=== PATIENT | female | born 1995 | race Caucasian/White ===

== ENCOUNTER 2018-02-16 08:15 | Emergency (ER) | payer SELFPAY ==
--- NOTE | 2018-02-16 09:04 | EKG ---
Test Date: 2018-02-16 Test Time: 08:52:39 Hospital Administrator: ANDREIA MEASUREMENT RESULTS: Intervals: Rate: 68 IN: 142 QRSD: 90 QT: 406 QTc: 431 [facility]: P: 42 IN: 142 QRS: 23 T: 21 INTERPRETIVE STATEMENTS: Normal sinus rhythm with sinus arrhythmia Normal ECG No previous ECG available for comparison Electronically Signed On 02-16-18 09:03:37 CDT by Sha Crooks
--- NOTE | 2018-02-16 09:16 | RAD REPORT ---
EXAM DESCRIPTION: RAD - Chest Single View - 02/16/2018 9:09 am CLINICAL HISTORY: Chest pain. COMPARISON: None. FINDINGS: Portable technique limits examination quality. The lungs are grossly clear. The heart is normal in size. No displaced fractures. IMPRESSION: No acute intrathoracic process suspected.
[2018-02-16 09:56] LABS: Absolute Lymphocytes (CBC) 2.3 K/uL (0.7-4.9); Absolute Monocytes 0.7 K/uL (0.1-1.3); Absolute Neutrophil 3.3 K/uL (1.8-8.0); Basophils % 0.8 % (0-1.3); Eosinophils % 1.8 % (0-4.4); Lymphocytes % 35.5 % (15.3-44.8); MCH 27.7 pg (27.0-35.0); MCV 83.6 fL (80-100); MPV 8.3 fL (7.6-11.3); Monocytes % 10.8 % (3.3-12.3); RBC Red Blood Cell Count 4.67 M/uL (3.86-4.86)
[2018-02-16 09:58] LABS: Bicarbonate 29 mEq/L (21-31); Glucose Level 91 mg/dL (65-120); Potassium 3.8 mEq/L (3.6-5.0); Sodium Level 137 mEq/L (135-145)
[2018-02-16 09:59] LABS: BUN Blood Urea Nitrogen 8 mg/dL (6-20); Magnesium 1.8 mg/dL (1.8-2.5)
--- NOTE | 2018-02-16 11:03 | EDPHYS ---
Physician Documentation [facility] Name: Mery Aguayo Age: 22 yrs Sex: Female : 1995 Arrival Date: 02/16/2018 Time: 08:15 Bed 16 Private MD: ED Physician Bismark Rodgers HPI: 02/16 08:32 This 22 yrs old Female presents to ER via Ambulatory with complaints of Chest ps1 Pain. 08:32 The patient or guardian reports chest pain that is located primarily in the substernal ps1 area. The pain does not radiate. Associated signs and symptoms: Pertinent positives: shortness of breath. The chest pain is described as a pressure, squeezing. Duration: The patient or guardian reports a single episode, that is still ongoing, and unchanged. Severity of pain: At its worst the pain was moderate. No recent travel , fever, cough, calf tenderness, recent surgery. Is overweight, has not seen a doctor in 3 years and hypertensive on exam. 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 . 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 - Social history:: Smoking status: Patient/guardian denies using tobacco. ROS: 08:32 Constitutional: Negative for fever, chills, and weight loss, Eyes: Negative for injury, ps1 pain, redness, and discharge, Neck: Negative for injury, pain, and swelling. 08:32 Abdomen/GI: Negative for abdominal pain, nausea, vomiting, diarrhea, and constipation, Back: Negative for injury and pain, MS/Extremity: Negative for injury and deformity, Skin: Negative for injury, rash, and discoloration, Neuro: Negative for headache, weakness, numbness, tingling, and seizure. 08:32 Cardiovascular: Positive for chest pain. 08:32 Respiratory: Positive for shortness of breath. Exam: 08:32 Constitutional: This is a well developed, well nourished patient who is awake, alert, ps1 and in no acute distress. Head/Face: Normocephalic, atraumatic. Eyes: Pupils equal round and reactive to light, extra-ocular motions intact. Lids and lashes normal. Conjunctiva and sclera are non-icteric and not injected. Chest/axilla: Normal chest wall appearance and motion. Nontender with no deformity. No lesions are appreciated. Cardiovascular: Regular rate and rhythm. No gallops, murmurs, or rubs. Normal PMI, no JVD. No pulse deficits. Respiratory: Lungs have equal breath sounds bilaterally, clear to auscultation and percussion. No rales, rhonchi or wheezes noted. No increased work of breathing, no retractions or nasal flaring. Abdomen/GI: Soft, non-tender, with normal bowel sounds. No distension or tympany. No guarding or rebound. No evidence of tenderness throughout. Skin: Warm, dry with normal turgor. Normal color with no rashes, no lesions, and no evidence of cellulitis. MS/ Extremity: Pulses equal, no cyanosis. Neurovascular intact. Full, normal range of motion. Neuro: Awake and alert, GCS 15, oriented to person, place, time, and situation. Cranial nerves II-XII grossly intact. Sensory grossly intact. 08:32 Constitutional: The patient appears obese. Vital Signs: 08:32 BP 148 / 75; Pulse 79; Resp 15; Temp 97.2(TE); Pulse Ox 100% on R/A; Weight 127.01 kg lk1 (R); Height 5 ft. 3 in. (160.02 cm) (R); Pain 6/10; 09:45 BP 127 / 73; Pulse 70; Resp 18; Pulse Ox 100% on R/A; ph 11:44 BP 117 / 65; Pulse 74; Resp 16; Pulse Ox 98% on R/A; Pain 0/10; iw 08:32 Body Mass Index 49.60 (127.01 kg, 160.02 cm) lk1 MDM: 08:36 Patient medically screened. ps1 11:03 HEART Score: History: Slightly Suspicious (0), ECG: Normal (0), Age: < or = 45 years ps1 (0), Risk Factors: 1 or 2 risk factors (1), Troponin: < or = 1 x Normal Limit (0), Total Score =. Data reviewed: vital signs, nurses notes, lab test result(s), EKG, radiologic studies, CT scan. Medication response: Toradol markedly relieved the patient's pain. Special discussion: Based on the patient's history, exam, and Dx evaluation, there is no indication for emergent intervention or inpatient Tx. It is understood by the patient/guardian that if the Sx's persist or worsen they need to return immediately for re-evaluation. 02/16 08:36 Order name: Basic Metabolic Panel; Complete Time: 10:06 ps1 02/16 08:36 Order name: CBC with Diff; Complete Time: 11:00 ps1 02/16 08:36 Order name: Magnesium; Complete Time: 10:06 ps1 02/16 08:36 Order name: Troponin (emerg Dept Use Only); Complete Time: 10:07 ps1 02/16 08:36 Order name: D-Dimer; Complete Time: 10:12 ps1 02/16 08:36 Order name: XRAY Chest (1 view); Complete Time: 09:19 ps1 02/16 08:36 Order name: EKG; Complete Time: 08:36 ps1 02/16 08:36 Order name: Cardiac monitoring; Complete Time: 09:41 ps1 02/16 08:36 Order name: EKG - Nurse/Tech; Complete Time: 09:41 ps1 02/16 08:36 Order name: IV Saline Lock; Complete Time: 09:41 ps1 02/16 08:36 Order name: Labs collected and sent; Complete Time: 09:42 ps1 02/16 08:36 Order name: O2 Per Protocol; Complete Time: 09:42 ps1 02/16 09:35 Order name: Test, Serum; Complete Time: 11:00 jw5 02/16 08:36 Order name: O2 Sat Monitoring; Complete Time: 09:42 ps1 02/16 08:36 Order name: Urine Dipstick-Ancillary (obtain specimen); Complete Time: 09:42 ps1 Administered Medications: No medications were administered Disposition: 02/16/18 11:02 Discharged to Home. Impression: Other chest pain. - Condition is Stable. - Discharge Instructions: Nonspecific Chest Pain. - Prescriptions for Anaprox DS 550 mg Oral Tablet - take 1 tablet by ORAL route every 12 hours As needed; 20 tablet. - Work release form, Medication Reconciliation Form, Thank You Letter, Antibiotic Education, Prescription Opioid Use form. - Follow up: Private Physician; When: As needed; Reason: Recheck today's complaints, Continuance of care, Re-evaluation by your physician. Follow up: Emergency Department; When: As needed; Reason: If symptoms return, Trouble breathing, Worsening of condition. - Problem is new. - Symptoms have improved. Signatures: Dispatcher [employer] Michelle Ashton, RN ROBE iw Monica Guillen RN RN lk1 Bismark Rodgers MD MD ps1 Corrections: (The following items were deleted from the chart) 09:45 08:36 BNP+C.LAB.BRZ ordered. RHETT DELANEY
--- NOTE | 2018-02-16 11:46 | ER ---
Nurse's Notes [facility] Name: Mery Aguayo Age: 22 yrs Sex: Female : 1995 Arrival Date: 02/16/2018 Time: 08:15 Bed 16 Private MD: Diagnosis: Other chest pain Presentation: 02/16 08:31 Presenting complaint: Patient states: "I have had heavy pains in my chest since I woke lk1 up this morning.". Transition of care: patient was not received from another setting of care. Onset of symptoms was February 16, 2018 at 05:30. Care prior to arrival: None. 08:31 Method Of Arrival: Ambulatory lk1 08:31 Acuity: MUKUL 3 lk1 Triage Assessment: 08:32 General: Appears in no apparent distress. Behavior is calm, cooperative, appropriate lk1 for age. Pain: Complains of pain in mid-sternal area Pain currently is 6 out of 10 on a pain scale. Cardiovascular: Capillary refill is brisk Patient's skin is warm and dry. 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 - Social history:: Smoking status: Patient/guardian denies using tobacco. Screenin:59 Abuse screen: Denies threats or abuse. Denies injuries from another. Nutritional aj screening: No deficits noted. Tuberculosis screening: No symptoms or risk factors identified. Fall Risk None identified. Assessment: 08:59 General: Appears in no apparent distress. comfortable, obese, Behavior is calm, aj cooperative, appropriate for age. Pain: Complains of pain in chest Pain does not radiate. Neuro: Level of Consciousness is awake, alert, obeys commands, Oriented to person, place, time, situation. Cardiovascular: Reports chest pain. Respiratory: Airway is patent Respiratory effort is even, unlabored, Respiratory pattern is regular, symmetrical. Derm: Skin is intact, is healthy with good turgor, Skin is pink, warm \\T\\ dry. normal. 09:46 Reassessment: Patient appears in no apparent distress at this time. Patient and/or ph family updated on plan of care and expected duration. Pain level reassessed. Patient is alert, oriented x 3, equal unlabored respirations, skin warm/dry/pink. Pt resting quietly, awaiting lab and radiology results, friend at bedside. 11:43 Reassessment: Patient appears in no apparent distress at this time. Patient and/or iw family updated on plan of care and expected duration. Pain level reassessed. Patient is alert, oriented x 3, equal unlabored respirations, skin warm/dry/pink. Pain: Denies pain. Pain began. Vital Signs: 08:32 BP 148 / 75; Pulse 79; Resp 15; Temp 97.2(TE); Pulse Ox 100% on R/A; Weight 127.01 kg lk1 (R); Height 5 ft. 3 in. (160.02 cm) (R); Pain 6/10; 09:45 BP 127 / 73; Pulse 70; Resp 18; Pulse Ox 100% on R/A; ph 11:44 BP 117 / 65; Pulse 74; Resp 16; Pulse Ox 98% on R/A; Pain 0/10; iw 08:32 Body Mass Index 49.60 (127.01 kg, 160.02 cm) lk1 ED Course: 08:15 Patient arrived in ED. as 08:27 Bismark Rodgers MD is Attending Physician. ps1 08:31 Triage completed. lk1 08:33 Arm band placed on right wrist. lk1 08:49 Rachel Bragg, RN is Primary Nurse. aj 08:59 Patient has correct armband on for positive identification. Pulse ox on. aj 08:59 Patient maintains SpO2 saturation greater than 95% on room air. aj 09:02 X-ray completed. Portable x-ray completed in exam room. Patient tolerated procedure ag1 well. 09:06 XRAY Chest (1 view) In Process Unspecified. EDMS 09:44 Inserted saline lock: 22 gauge in right antecubital area, using aseptic technique. ph Blood collected. 09:45 EKG done, by die maintenance technician. reviewed by Bismark Rodgers MD. tc 11:43 No provider procedures requiring assistance completed. IV discontinued, intact, iw bleeding controlled, No redness/swelling at site. Pressure dressing applied. Administered Medications: No medications were administered Outcome: 11:02 Discharge ordered by . ps1 11:43 Discharged to home ambulatory, with family. iw 11:43 Condition: good 11:43 Discharge instructions given to patient, family, Instructed on discharge instructions, follow up and referral plans. medication usage, Demonstrated understanding of instructions, follow-up care, medications, Prescriptions given X 1. 11:46 Patient left the ED. iw Signatures: Dispatcher [employer] EDMS Rachel Bragg, ROBE RN Eliza Oro Irene, RN RN Keyonna Liu, parts product analyst EKG [facility] Kim Ba RN RN Renea Kramer ag1 Monica Guillen RN RN lk1 Bismark Rodgers MD MD ps1
[2018-02-16 11:58] VITALS: TEMP 97.2
[2018-02-16 12:04] VITALS: BP 117/65; O2SAT 98
== END 2018-02-16 11:46 | disposition home or self-care (01) ==
LOC: ER 08:15
DX: R07.89 Other chest pain (principal)
CPT/HCPCS: 36415; 71045; 80048; 83735; 84484; 84703; 85025; 85379; 93005; 99284

== ENCOUNTER 2018-11-03 10:21 | Emergency (ER) | payer OTHER ==
--- OUTSIDE RECORDS SUMMARY | 2018-11-03 10:23 | XMS REPORT ---
:1995 Author Organization [facility] Address [address] [place] [address] Dr. Sousa [address] [place] [id number] Care Team Providers Name Role Phone Unavailable Unavailable Unavailable Problems This patient has no known problems. Allergies, Adverse Reactions, Alerts This patient has no known allergies or adverse reactions. Medications This patient has no known medications.
[2018-11-03] MEDS ORDERED: ALBUTEROL 2.5 MG/3 ML NEB SOL ONE (10:58)
--- NOTE | 2018-11-03 11:07 | EDPHYS ---
Physician Documentation [facility] Name: Mery Aguayo Age: 23 yrs Sex: Female : 1995 Arrival Date: 11/03/2018 Time: 10:24 Bed 5 Private MD: ED Physician Seng Sousa HPI: 11/03 10:51 This 23 yrs old Female presents to ER via Ambulatory with complaints of Sore snw Throat. 10:51 The patient presents with sore throat. The patient describes throat pain as dry, raw. snw Onset: The symptoms/episode began/occurred suddenly, 4 day(s) ago, and became persistent. Severity of symptoms: At their worst the symptoms were moderate. Associated signs and symptoms: The patient has no apparent associated signs or symptoms. It is unknown whether or not the patient has had similar symptoms in the past. It is unknown whether or not the patient has recently seen a physician. no ill contacts. 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 - Social history:: Smoking status: Patient/guardian denies using tobacco. - Ebola Screening: : No symptoms or risks identified at this time. ROS: 10:50 Constitutional: Negative for fever, chills, and weight loss, Eyes: Negative for injury, snw pain, redness, and discharge, Neck: Negative for injury, pain, and swelling, Cardiovascular: Negative for chest pain, palpitations, and edema, Abdomen/GI: Negative for abdominal pain, nausea, vomiting, diarrhea, and constipation, Back: Negative for injury and pain, : Negative for injury, bleeding, discharge, and swelling, MS/Extremity: Negative for injury and deformity, Skin: Negative for injury, rash, and discoloration, Neuro: Negative for headache, weakness, numbness, tingling, and seizure. 10:50 ENT: Positive for sore throat. 10:50 Respiratory: Positive for cough, with no reported sputum. Exam: 10:48 Constitutional: This is a well developed, well nourished patient who is awake, alert, snw and in no acute distress. Head/Face: Normocephalic, atraumatic. Eyes: Pupils equal round and reactive to light, extra-ocular motions intact. Lids and lashes normal. Conjunctiva and sclera are non-icteric and not injected. Cornea within normal limits. Periorbital areas with no swelling, redness, or edema. Neck: Trachea midline, no thyromegaly or masses palpated, and no cervical lymphadenopathy. Supple, full range of motion without nuchal rigidity, or vertebral point tenderness. No Meningismus. Chest/axilla: Normal chest wall appearance and motion. Nontender with no deformity. No lesions are appreciated. Cardiovascular: Regular rate and rhythm with a normal S1 and S2. No gallops, murmurs, or rubs. Normal PMI, no JVD. No pulse deficits. Abdomen/GI: Soft, gravid, with normal bowel sounds. No distension or tympany. No guarding or rebound. No evidence of tenderness throughout. Back: No spinal tenderness. No costovertebral tenderness. Full range of motion. 10:48 Skin: Warm, dry with normal turgor. Normal color with no rashes, no lesions, and no evidence of cellulitis. MS/ Extremity: Pulses equal, no cyanosis. Neurovascular intact. Full, normal range of motion. Neuro: Awake and alert, GCS 15, oriented to person, place, time, and situation. Cranial nerves II-XII grossly intact. Motor strength 5/5 in all extremities. Sensory grossly intact. Cerebellar exam normal. Normal gait. Psych: Awake, alert, with orientation to person, place and time. Behavior, mood, and affect are within normal limits. 10:48 ENT: External ear(s): are unremarkable, Ear canal(s): are normal, TM's: are normal, Nose: is normal, Mouth: is normal, Posterior pharynx: erythema, that is mild, Voice: is normal. 10:48 Respiratory: the patient does not display signs of respiratory distress, Respirations: normal, Breath sounds: wheezing: expiratory that is mild, is scattered. Vital Signs: 10:35 BP 115 / 71; Pulse 83; Resp 18; Temp 97.4; Pulse Ox 100% on R/A; Weight 135.17 kg; ph Height 5 ft. 3 in. (160.02 cm); 10:35 Body Mass Index 52.79 (135.17 kg, 160.02 cm) ph MDM: 10:30 Patient medically screened. [facility] 11:08 Data reviewed: vital signs, nurses notes. Data interpreted: Pulse oximetry: on room air snw is 100 %. Interpretation: normal. Counseling: I had a detailed discussion with the patient and/or guardian regarding: the historical points, exam findings, and any diagnostic results supporting the discharge/admit diagnosis, lab results, the need for outpatient follow up, to return to the emergency department if symptoms worsen or persist or if there are any questions or concerns that arise at home. Special discussion: Based on the history and exam findings, there is no indication for further emergent testing or inpatient evaluation. I discussed with the patient/guardian the need to see the primary care provider for further evaluation of the symptoms. 11/03 10:47 Order name: Strep; Complete Time: 11:04 snw 11/03 11:04 Order name: Throat Culture EDMS Administered Medications: 10:51 Drug: Albuterol 2.5 mg Route: Inhalation; iw 11:17 Drug: Decadron 4 mg Route: PO; sv 11:17 Follow up: Response: No adverse reaction sv Disposition: 16:02 Co-signature as Attending Physician, Seng Sousa MD I agree with the assessment and kdr plan of care. Disposition: 11/03/18 11:06 Discharged to Home. Impression: Acute pharyngitis, Wheezing. - Condition is Stable. - Discharge Instructions: Allergies, Adult, Pharyngitis, Cough, Adult, How to Use an Inhaler, Hasd-gr-Vymw, Rehydration, Adult. - Prescriptions for Albuterol Sulfate 90 mcg/actuation - inhale 1-2 puff by INHALATION route every 4-6 hours; 1 Inhaler. - Medication Reconciliation Form, Thank You Letter, Antibiotic Education, Prescription Opioid Use form. - Work release form (11/03/18 11:23). snw - Follow up: Private Physician; When: 2 - 3 days; Reason: Recheck today's complaints, Continuance of care, Re-evaluation by your physician. Follow up: Emergency Department; When: As needed; Reason: Worsening of condition. Signatures: Dispatcher [employer] EDVandana Diop RN RN sv Anderson, Corey, MD MD cha Rittger, Seng, MD MD kdr Candido, Laya, GEAR REPAIR SUPERVISOR-C GEAR REPAIR SUPERVISOR-Csnw Michelle Schafer, RN RN iw Kim Ba RN RN ph Corrections: (The following items were deleted from the chart) 11:19 11:06 11/03/2018 11:06 Discharged to Home. Impression: Acute pharyngitis; Wheezing. sv Condition is Stable. Forms are Medication Reconciliation Form, Thank You Letter, Antibiotic Education, Prescription Opioid Use. Follow up: Private Physician; When: 2 - 3 days; Reason: Recheck today's complaints, Continuance of care, Re-evaluation by your physician. Follow up: Emergency Department; When: As needed; Reason: Worsening of condition. snw
--- NOTE | 2018-11-03 11:07 | ER ---
Nurse's Notes [facility] Name: Mery Aguayo Age: 23 yrs Sex: Female : 1995 Arrival Date: 11/03/2018 Time: 10:24 Bed 5 Private MD: Diagnosis: Acute pharyngitis;Wheezing Presentation: 11/03 10:34 Presenting complaint: Patient states: Stuffy/runny nose and sore throat x 2-3 days, ph denies fever, N/V, states, " I heard strep was going around and wanted to make sure I don't have it." Pt 35 weeks . Transition of care: patient was not received from another setting of care. Onset of symptoms was November 03, 2018. Risk Assessment: Do you want to hurt yourself or someone else? Patient reports desire/thoughts of hurting themselves or someone else. Provider notified. Initial Sepsis Screen: Does the patient meet any 2 criteria? No. Patient's initial sepsis screen is negative. Does the patient have a suspected source of infection? No. Patient's initial sepsis screen is negative. Care prior to arrival: None. 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 - Social history:: Smoking status: Patient/guardian denies using tobacco. - Ebola Screening: : No symptoms or risks identified at this time. Screenin:44 Abuse screen: Denies threats or abuse. Denies injuries from another. Nutritional sv screening: No deficits noted. Tuberculosis screening: No symptoms or risk factors identified. Fall Risk None identified. Assessment: 10:48 General: Appears in no apparent distress. comfortable, Behavior is calm, cooperative, sv appropriate for age. Pain: Denies pain. Neuro: Level of Consciousness is awake, alert, obeys commands, Oriented to person, place, time, situation, Moves all extremities. Full function Gait is steady, Speech is normal. Respiratory: Airway is patent Respiratory effort is even, unlabored, Respiratory pattern is regular, symmetrical. EENT: Oral mucosa is moist. Throat is pink Reports sore throat. Vital Signs: 10:35 BP 115 / 71; Pulse 83; Resp 18; Temp 97.4; Pulse Ox 100% on R/A; Weight 135.17 kg; ph Height 5 ft. 3 in. (160.02 cm); 10:35 Body Mass Index 52.79 (135.17 kg, 160.02 cm) ph ED Course: 10:24 Patient arrived in ED. mr 10:25 Laya Rey FNP-C is PHCP. snw 10:25 Seng Sousa MD is Attending Physician. snw 10:30 Michelle Schafer, ROBE is Primary Nurse. iw 10:35 Triage completed. ph 10:36 Arm band placed on Patient placed in an exam room. ph 10:44 Patient has correct armband on for positive identification. Bed in low position. Door sv closed. Head of bed elevated. 10:48 Strep swab sent to lab. sv 11:18 No provider procedures requiring assistance completed. Patient did not have IV access sv during this emergency room visit. Administered Medications: 10:51 Drug: Albuterol 2.5 mg Route: Inhalation; iw 11:17 Drug: Decadron 4 mg Route: PO; sv 11:17 Follow up: Response: No adverse reaction sv Outcome: 11:06 Discharge ordered by . snw 11:18 Discharged to home ambulatory. sv 11:18 Condition: stable 11:18 Discharge instructions given to patient, Instructed on discharge instructions, follow up and referral plans. medication usage, Demonstrated understanding of instructions, follow-up care, medications, Prescriptions given X 1. 11:19 Patient left the ED. sv Signatures: Vandana Clark RN RN Laya Rey FNP-C SYNTHETIC SOIL BLOCKS PULPER-Csnw Falguni Khoury mr Michelle Schafer RN RN Kim Ba RN RN
[2018-11-03] MEDS ORDERED: DEXAMETHASONE 4 MG TAB ONE (11:22)
[2018-11-03 11:29] VITALS: BP 115/71; TEMP 97.4; O2SAT 100
== END 2018-11-03 11:19 | disposition home or self-care (01) ==
LOC: ER 10:21
DX: O26.893 Other specified pregnancy related conditions, third trimester (principal); Z3A.35 35 weeks gestation of pregnancy; J02.9 Acute pharyngitis, unspecified; R06.2 Wheezing
CPT/HCPCS: 87070; 87081; 99284

== ENCOUNTER 2024-10-27 18:45 | Emergency (ER) | payer OTHER, SELFPAY ==
--- NOTE | 2024-10-27 19:17 | ER ---
Nurse's Notes [facility] Name: Mery Aguayo Age: 29 yrs Sex: Female : 1995 Arrival Date: 10/27/2024 Time: 18:45 Bed 13 Private MD: Diagnosis: Otitis Media, Left; Ruptured Left Tympanic Membrane Presentation: 10/27 19:14 Chief complaint: Patient states: Lt ear pain and drainage x2 weeks. Coronavirus screen: dd2 At this time, the client does not indicate any symptoms associated with coronavirus-19. Ebola Screen: No symptoms or risks identified at this time. Initial Sepsis Screen: Does the patient meet any 2 criteria? No. Patient's initial sepsis screen is negative. Does the patient have a suspected source of infection? No. Patient's initial sepsis screen is negative. Risk Assessment: Do you want to hurt yourself or someone else? Patient reports no desire to harm self or others. Onset of symptoms is unknown. 19:14 Method Of Arrival: Ambulatory dd2 19:14 Acuity: MUKUL 4 dd2 Triage Assessment: 19:15 General: Appears in no apparent distress. Behavior is calm, cooperative, appropriate dd2 for age. Pain: Complains of pain in left ear Pain does not radiate. Pain currently is 7 out of 10 on a pain scale. EENT: Tympanic membrane not visualized left ear Ear canal w/ drainage noted from left ear w/ foreign body noted from left ear. Neuro: No deficits noted. Cardiovascular: No deficits noted. Respiratory: No deficits noted. GI: No deficits noted. No signs and/or symptoms were reported involving the gastrointestinal system. : No deficits noted. No signs and/or symptoms were reported regarding the genitourinary system. Derm: No deficits noted. No signs and/or symptoms reported regarding the dermatologic system. Musculoskeletal: No deficits noted. No signs and/or symptoms reported regarding the musculoskeletal system. 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 - Infectious Disease History:: Denies. - Social history:: Smoking status: Reported history of juuling and/or vaping. Screenin:17 [facility] ED Fall Risk Assessment (Adult) History of falling in the last 3 months, dd2 including since admission No falls in past 3 months (0 pts) Confusion or Disorientation No (0 pts) Intoxicated or Sedated No (0 pts) Impaired Gait No (0 pts) Mobility Assist Device Used No (0 pt) Altered Elimination No (0 pt) Score/Fall Risk Level 0 - 2 = Low Risk Oriented to surroundings, Maintained a safe environment, Educated pt \T\ family on fall prevention, incl call for assistance when getting out of bed, Assessed \T\ reinforced patient's understanding of fall precautions, Hourly rounding (assess needs \T\ fall precautionary measures) done. Abuse screen: Denies threats or abuse. Nutritional screening: No deficits noted. Tuberculosis screening: No symptoms or risk factors identified. Assessment: 19:17 Reassessment: SEE TRIAGE ASSESSMENT FOR FULL ASSESSMENT. dd2 Vital Signs: 19:14 BP 133 / 77; Pulse 84; Resp 16; Temp 98.4(O); Pulse Ox 99% on R/A; Weight 136.08 kg; dd2 Height 5 ft. 3 in. ; 19:29 BP 128 / 75; Pulse 86; Resp 16; Pulse Ox 100% ; dd2 19:14 Body Mass Index 53.14 (136.08 kg, 160.02 cm) dd2 Tangent Coma Score: 19:17 Eye Response: spontaneous(4). Motor Response: obeys commands(6). Verbal Response: dd2 oriented(5). Total: 15. ED Course: 18:48 Patient arrived in ED. ra3 18:51 [facility] cp 18:51 Uzair Martins MD is Attending Physician. cp 19:06 ULICES SAUNDERS, ROBE is Primary Nurse. dd2 19:15 Triage completed. dd2 19:15 Arm band placed on right wrist. Patient placed in an exam room, on a stretcher, on dd2 pulse oximetry. 19:16 Vandana Benites MD is Referral Physician. ec2 19:17 Patient has correct armband on for positive identification. Bed in low position. Call dd2 light in reach. Client placed on continuous cardiac and pulse oximetry monitoring. NIBP monitoring applied. Door closed. Noise minimized. Pillow given. Verbal reassurance given. 19:17 No provider procedures requiring assistance completed. Patient did not have IV access dd2 during this emergency room visit. Patient maintains SpO2 saturation greater than 95% on room air. 19:29 Provided Education on: D/C INSTRUCTIONS. dd2 Administered Medications: 19:28 Drug: Ketorolac IM 15 mg IM once Route: IM; Site: right deltoid; dd2 19:28 Follow up: Response: Medication administered at discharge. dd2 19:29 Drug: Amoxicillin-Clavulanate PO 875 mg PO once Route: PO; dd2 19:29 Follow up: Response: Medication administered at discharge. dd2 Medication: 19:17 VIS not applicable for this client. dd2 Outcome: 19:17 Discharge ordered by MD. ec2 19:29 Discharged to home ambulatory, dd2 19:29 Condition: good 19:29 Discharge instructions given to patient, Instructed on discharge instructions, follow up and referral plans. medication usage, Demonstrated understanding of instructions, follow-up care, medications, Prescriptions given X 1, 19:30 Patient left the ED. dd2 Signatures: Bryon Livingston PA PA cp Corral, Edwin, MD MD ec2 Heena Arnold ra3 ULICES SAUNDERS, RN RN dd2
--- NOTE | 2024-10-27 19:17 | EDPHYS ---
Physician Documentation [facility] Name: Mery Aguayo Age: 29 yrs Sex: Female : 1995 Arrival Date: 10/27/2024 Time: 18:45 Bed 13 Private MD: ED Physician Uzair Martins HPI: 10/27 19:17 This 29 yrs old Female presents to ER via Ambulatory with complaints of Ear ec2 Pain - Left. 19:17 Patient arrives today for evaluation of left ear pain, left ear drainage as well as ec2 muffled sounds and dizziness. No fevers or chills, nausea or vomiting.. 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 - Infectious Disease History:: Denies. - Social history:: Smoking status: Reported history of juuling and/or vaping. ROS: 19:17 Constitutional: as per hpi ec2 Exam: 19:17 Constitutional: GEN: NAD Head: atraumatic Eyes: EOMI Ears: External ears are normal. ec2 Left ear with ruptured tympanic membrane and drainage noted, no significant erythema within the canal, purulent drainage appreciated. CV: regular rate LUNGS: no respiratory distress ABD: non-distended SKIN: no evidence of rashes MSK: no evidence of trauma Vital Signs: 19:14 BP 133 / 77; Pulse 84; Resp 16; Temp 98.4(O); Pulse Ox 99% on R/A; Weight 136.08 kg; dd2 Height 5 ft. 3 in. ; 19:29 BP 128 / 75; Pulse 86; Resp 16; Pulse Ox 100% ; dd2 19:14 Body Mass Index 53.14 (136.08 kg, 160.02 cm) dd2 Vicky Coma Score: 19:17 Eye Response: spontaneous(4). Motor Response: obeys commands(6). Verbal Response: dd2 oriented(5). Total: 15. MDM: 19:15 Medical Screening Exam initiated ec2 19:17 Data reviewed: vital signs, nurses notes. ED course: Patient arrives today for ec2 evaluation of left ear pain and findings as above. Examination yields otitis media with ruptured tympanic membrane. Will start the patient on Augmentin and have the patient follow-up with ENT. Return precautions given.. Administered Medications: 19:28 Drug: Ketorolac IM 15 mg IM once Route: IM; Site: right deltoid; dd2 19:28 Follow up: Response: Medication administered at discharge. dd2 19:29 Drug: Amoxicillin-Clavulanate PO 875 mg PO once Route: PO; dd2 19:29 Follow up: Response: Medication administered at discharge. dd2 Disposition Summary: 10/27/24 19:17 Discharge Ordered Notes: Location: Home ec2 Condition: Stable ec2 Diagnosis - Otitis Media, Left; Ruptured Left Tympanic Membrane ec2 Followup: ec2 - With: Vandana Benites MD - When: - Reason: Recheck today's complaints Discharge Instructions: - Discharge Summary Sheet ec2 - Otitis Media, Adult, [id number] ec2 - Ear Drainage, [id number] ec2 Forms: - Medication Reconciliation Form ec2 - Antibiotic Education ec2 - Prescription Opioid Use ec2 - Patient Portal Instructions ec2 - Leadership Thank You Letter ec2 Prescriptions: - Augmentin 875-125 mg Oral Tablet - take 1 tablet ORAL route every 12 hours for 10 days; 20 tablet; Refills: 0, ec2 Product Selection Permitted Signatures: Uzair Martins MD MD ec2 ULICES SAUNDERS RN RN dd2
[2024-10-27] MEDS ORDERED: AMOX/K CLAV 875 MG TAB ONE (19:22)
[2024-10-27] MEDS ORDERED: KETOROLAC 30 MG/ML INJ ONE (19:22)
[2024-10-27 19:46] VITALS: TEMP 98.4
[2024-10-27 19:51] VITALS: BP 128/75; O2SAT 100
== END 2024-10-27 19:30 | disposition home or self-care (01) ==
LOC: ER 18:45
DX: H66.92 Otitis media, unspecified, left ear (principal); H72.92 Unspecified perforation of tympanic membrane, left ear; F17.290 Nicotine dependence, other tobacco product, uncomplicated
CPT/HCPCS: 96372; 99284

== ENCOUNTER 2024-12-14 18:14 | Emergency (ER) | payer SELFPAY ==
--- NOTE | 2024-12-14 20:15 | RAD REPORT ---
EXAMINATION: XR Elbow Right 3 View CLINICAL INDICATION: Female, 29 years old. PAIN RIGHT TECHNIQUE: 3 view radiographs of the right elbow were obtained. COMPARISON: No prior exam. FINDINGS: No evidence of fracture or dislocation. Normal alignment. No joint effusion. No evidence of arthropathy. No suspicious focal bone lesion. Soft tissues are unremarkable. IMPRESSION: No acute or significant abnormalities.
--- NOTE | 2024-12-14 20:15 | RAD REPORT ---
EXAMINATION: XR Foot Right 3 View CLINICAL INDICATION: Female, 29 years old. [facility] MAIN PAIN Bed Name: [facility] TECHNIQUE: 3 view radiographs of the right foot were obtained. COMPARISON: No prior exam. FINDINGS: No evidence of fracture or dislocation. Normal alignment. No evidence of arthropathy or oth er focal bone lesion. Small calcaneal spur. Soft tissues are unremarkable. No soft tissue swelling. No significant degenerative changes. IMPRESSION: No acute or significant abnormalities.
--- NOTE | 2024-12-14 20:48 | ER ---
Nurse's Notes [facility] Name: Mery Aguayo Age: 29 yrs Sex: Female : 1995 Arrival Date: 12/14/2024 Time: 18:14 Bed 11 Private MD: Diagnosis: Pain in right foot;Pain in right elbow Presentation: 12/14 18:32 Chief complaint: Patient states: my right foot has been bothering me since mid October iw since i started work , I am on my feet a lot and wear steel toe shoes, the side of my foot hurts when you touch it and the foot is numb , and I hit my right elbow and it has been hurting since Friday. Coronavirus screen: At this time, the client does not indicate any symptoms associated with coronavirus-19. Ebola Screen: No symptoms or risks identified at this time. Initial Sepsis Screen: Does the patient meet any 2 criteria? No. Patient's initial sepsis screen is negative. Does the patient have a suspected source of infection? No. Patient's initial sepsis screen is negative. Risk Assessment: Do you want to hurt yourself or someone else? Patient reports no desire to harm self or others. Onset of symptoms was October 2024. 18:32 Acuity: MUKUL 4 iw 18:32 Method Of Arrival: Ambulatory iw Triage Assessment: 18:36 General: Appears in no apparent distress. Behavior is calm, cooperative. Pain: iw Complains of pain in right foot. 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 - Infectious Disease History:: Denies. - Social history:: Smoking status: Reported history of juuling and/or vaping. Screenin:06 [facility] ED Fall Risk Assessment (Adult) History of falling in the last 3 months, jb4 including since admission No falls in past 3 months (0 pts) Confusion or Disorientation No (0 pts) Intoxicated or Sedated No (0 pts) Impaired Gait No (0 pts) Mobility Assist Device Used No (0 pt) Altered Elimination No (0 pt) Score/Fall Risk Level 0 - 2 = Low Risk Oriented to surroundings, Maintained a safe environment. Abuse screen: Denies threats or abuse. Nutritional screening: No deficits noted. Tuberculosis screening: No symptoms or risk factors identified. Assessment: 20:06 General: Appears in no apparent distress. comfortable, Behavior is calm, cooperative, jb4 appropriate for age. Pain: Complains of pain in right foot and right elbow Pain does not radiate. Pain currently is 10 out of 10 on a pain scale. Unable to use pain scale. FLACC scale score is 3 out of 10. Pt resting comfortably in bed. Neuro: Level of Consciousness is awake, alert, obeys commands, Oriented to person, place, time, situation. Cardiovascular: Patient's skin is warm and dry. Respiratory: Airway is patent Respiratory effort is even, unlabored, Respiratory pattern is regular, symmetrical. Derm: Skin is intact, Skin is pink, warm \T\ dry. Musculoskeletal: Circulation, motion, and sensation intact. Range of motion: intact in all extremities. 21:12 Reassessment: Patient appears in no apparent distress at this time. Patient and/or jb4 family updated on plan of care and expected duration. Pain level reassessed. Patient is alert, oriented x 3, equal unlabored respirations, skin warm/dry/pink. Vital Signs: 18:32 BP 134 / 79; Pulse 84; Resp 16; Temp 98.2; Pulse Ox 100% on R/A; Weight 142.88 kg; iw Height 5 ft. 3 in. ; Pain 10/10; 18:32 Body Mass Index 55.80 (142.88 kg, 160.02 cm) iw 18:32 Pain Scale: Adult iw ED Course: 18:17 Patient arrived in ED. im 18:20 Rebecca Aguayo FNP-C is PHCP. kb 18:21 Bk Beckman MD is Attending Physician. kb 18:34 Triage completed. iw 18:36 Arm band placed on. iw 19:39 Foot Right 3 View XRAY In Process Unspecified. EDMS 19:39 Elbow Right 3 View XRAY In Process Unspecified. EDMS 20:05 Yoseph Locke, RN is Primary Nurse. jb4 20:06 Patient has correct armband on for positive identification. Bed in low position. Call jb4 light in reach. Side rails up X 1. Provided Education on: plan of care. 20:06 No provider procedures requiring assistance completed. Patient did not have IV access jb4 during this emergency room visit. Administered Medications: 21:06 Drug: Ketorolac IM 30 mg IM once Route: IM; Site: right deltoid; jb4 21:11 Follow up: Response: Medication administered at discharge. jb4 Medication: 20:06 VIS not applicable for this client. jb4 Outcome: 20:47 Discharge ordered by MD. srinivasan 21:12 Discharged to home ambulatory, with family, jb4 21:12 Condition: stable 21:12 Discharge instructions given to patient, Instructed on discharge instructions, follow up and referral plans. no drinking with medication, no driving heavy equipment, medication usage, Demonstrated understanding of instructions, follow-up care, medications, Prescriptions given X 2, 21:12 Patient left the ED. jb4 Signatures: Dispatcher [employer] EDMS Rebecca Aguayo, GENERAL MACHINE OPERATOR-C MYRIAM-Michelle Stratton RN RN iw Bryson, James, RN RN jb4 Deb Love Corrections: (The following items were deleted from the chart) 18:34 18:32 Chief complaint: Patient states: my right foot has been bothering me since mid october since i started work , I am on my feet a lot and wear steel toe shoes, the side of my foot hurts when you touch it and the foot is numb iw 18:37 18:32 BP 134 / 79; Pulse 84bpm; Resp 16bpm; Pulse Ox 100% RA; Temp 98.2F; iw iw
--- NOTE | 2024-12-14 20:48 | EDPHYS ---
Physician Documentation [facility] Name: Mery Aguayo Age: 29 yrs Sex: Female : 1995 Arrival Date: 12/14/2024 Time: 18:14 Bed 11 Private MD: ED Physician Bk Beckman HPI: 12/14 21:23 This 29 yrs old Female presents to ER via Ambulatory with complaints of Foot Pain - kb right, Elbow pain right, Numbness Of Hand - Both. 21:23 Pt is a 29 year old female who presents for lateral right foot pain that has been kb ongoing for 2 months. Also reports pain to right elbow that started 5 days ago. States she hit her elbow on a door at work. Denies injury to foot. States she is here primarily for the foot pain. 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 - Infectious Disease History:: Denies. - Social history:: Smoking status: Reported history of juuling and/or vaping. ROS: 21:22 Constitutional: As per HPI kb Exam: 21:22 Constitutional: This is a well developed, well nourished patient who is awake, alert, kb and in no acute distress. Head/Face: Normocephalic, atraumatic. ENT: Moist Mucous membranes Cardiovascular: Regular rate Respiratory: Respirations even and unlabored. No increased work of breathing. Talking in full sentences Abdomen/GI: Soft, non-tender. No distention Skin: Warm, dry with normal turgor. Normal color. Neuro: Awake and alert, GCS 15, oriented to person, place, time, and situation. 21:22 Musculoskeletal/extremity: Extremities: grossly normal except: noted in the right elbow: pain, noted in the lateral side of right foot: pain, ROM: intact in all extremities, Circulation is intact in all extremities. Sensation intact. Weight bearing: able to fully bear weight, Vital Signs: 18:32 BP 134 / 79; Pulse 84; Resp 16; Temp 98.2; Pulse Ox 100% on R/A; Weight 142.88 kg; iw Height 5 ft. 3 in. ; Pain 10/10; 18:32 Body Mass Index 55.80 (142.88 kg, 160.02 cm) iw 18:32 Pain Scale: Adult iw MDM: 18:21 Medical Screening Exam initiated kb 21:23 Differential diagnosis: closed fracture, contusion, tendonitis. Data reviewed: vital kb signs, nurses notes. Historians other than the Patient: Spouse/Significant Other: spouse. Counseling: I had a detailed discussion with the patient and/or guardian regarding the historical points, exam findings, and any diagnostic results supporting the discharge/admit diagnosis, radiology results, the need for outpatient follow up, a orthopedic surgeon, to return to the emergency department if symptoms worsen or persist or if there are any questions or concerns that arise at home. 12/14 18:37 Order name: Foot Right 3 View XRAY; Complete Time: 20:15 kb 12/14 18:37 Order name: Elbow Right 3 View XRAY; Complete Time: 20:15 kb Administered Medications: 21:06 Drug: Ketorolac IM 30 mg IM once Route: IM; Site: right deltoid; jb4 21:11 Follow up: Response: Medication administered at discharge. jb4 Disposition Summary: 12/14/24 20:47 Discharge Ordered Notes: Location: Home kb Condition: Stable kb Diagnosis - Pain in right foot kb - Pain in right elbow kb Followup: kb - With: Emergency Department - When: As needed - Reason: Worsening of condition Followup: kb - With: Private Physician - When: 2 - 3 days - Reason: Recheck today's complaints, Continuance of care, Re-evaluation by your physician Discharge Instructions: - Discharge Summary Sheet kb - Musculoskeletal Pain kb - Foot Pain kb Forms: - Medication Reconciliation Form kb - Antibiotic Education kb - Prescription Opioid Use kb - Patient Portal Instructions kb - Leadership Thank You Letter kb Prescriptions: - Diclofenac Sodium 75 mg Oral tablet, delayed release (enteric coated) - take 1 tablet ORAL route 2 times per day As needed; 30 tablet; Refills: 0, kb Product Selection Permitted - orphenadrine citrate 100 mg Oral Tablet Sustained Release - take 1 tablet ORAL route 2 times per day As needed; 20 tablet; Refills: 0, kb Product Selection Permitted Signatures: Dispatcher [employer] Rebecca Martines FNP-C TRANSPORTATION ATTENDANT-Michelle Stratton, RN RN iw Yoseph Locke RN RN jb4 Corrections: (The following items were deleted from the chart) 18:37 18:37 Elbow Right 3 View+RAD.RAD.BRZ ordered. EDMS EDMS
[2024-12-14] MEDS ORDERED: KETOROLAC 30 MG/ML INJ ONE (20:58)
[2024-12-15 07:22] VITALS: BP 134/79; TEMP 98.2; O2SAT 100
== END 2024-12-14 21:12 | disposition home or self-care (01) ==
LOC: ER 18:14
DX: M79.671 Pain in right foot (principal); M25.521 Pain in right elbow
CPT/HCPCS: 96372; 99284